=== PATIENT | female | born 1945 | race Caucasian/White ===

== ENCOUNTER 2020-09-18 14:44 | Inpatient (IN) | payer MEDICARE, BC ==
--- NOTE | 2020-09-18 15:24 | ED ---
General Adult HPI - General Chief complaint: Chest Pain Stated complaint: SOB,Chest Pain Time Seen by Provider: 09/18/20 15:06 Source: patient Mode of arrival: ambulatory Limitations: no limitations - History of Present Illness Initial comments: Dictation was produced using [employer] dictation software. please excuse any grammatical, word or spelling errors. Chief Complaint: 75-year-old female past medical history of pulmonary embolus, pneumonia presents to the emergency department for chest pain and shortness of breath History of Present Illness: Is a 75-year-old female. She presents to the emergency department today for 2 days of chest pain and shortness of breath. Patient states she has sharp chest pain to the left chest that's worse with deep inspiration. Patient has history of pneumonia blood clot. Patient states she was diagnosed with PE 2 years ago. She completed a course of anticoagulation therapy. Patient has no history of coronary artery disease. She denies that her symptoms are pressure-like with radiation to the extremities or jaw. No associated diaphoresis. Patient has any lower extremity symptoms. No calf tenderness or lower extremity swelling. Patient's never had coronary artery catheterization or cardiac stress test. He has a remote history of smoking. The ROS documented in this emergency department record has been reviewed and confirmed by me. Those systems with pertinent positive or negative responses have been documented in the HPI. All other systems are other negative and/or no ncontributory. PHYSICAL EXAM: General Impression: Alert and oriented x3, mild distress secondary to pain HEENT: Normocephalic atraumatic, extra-ocular movements intact, pupils equal and reactive to light bilaterally, mucous membranes moist. Cardiovascular: Heart regular rate and rhythm Chest: Able to complete full sentences, no retractions, no tachypnea, lungs clear to auscultation bilaterally Abdomen: abdomen soft, non-tender, non-distended, no organomegaly Musculoskeletal: Pulses present and equal in all extremities, no peripheral edema, symmetrical girth of the lower calf area bilaterally Motor: no focal deficits noted Neurological: CN II-XII grossly intact, no focal motor or sensory deficits noted Skin: Intact with no visualized rashes Psych: Normal affect and mood ED course: 75-year-old female presents to the emergency department for chest pain and shortness of breath. Vital signs upon arrival shows heart rate of 118, 93% on room air, rest of vital signs within acceptable limits. Patient has history of pulmonary embolus. She presents with pleuritic chest pain.. There is clinical concern for bony embolus causing her chest pain. Posterior EKG was performed showing no ST elevations. Patient's EKG could represent ischemic changes versus right heart strain. EKG interpretation: Ventricular rate 14, sinus tachycardia, MN interval 166, QRS 86, QTC 438. No MN prolongation, no QTC prolongation, T-wave inversions in the anterior precordial leads.. No old EKG for comparison Overall, this EKG is nonspecific Laboratory evaluation obtained. CBC within acceptable limits. Coag panel is negative. D-dimer 0.61. Metabolic panel is within acceptable limits. Troponin negative. For panel are up ECR is negative for influenza, RSV and coronavirus. Given patient's tachycardic CT angios the chest was obtained showing no acute PE however there are findings of small left pleural effusion and some mild CHF. X- ray suggests CHF. Patient reevaluated at bedside at 5:40 PM she is found be stable medical condition. She is not showing signs of respiratory distress. She still continues to have pleuritic left-sided chest pain. Patient given analgesics. Continues to be tachycardic. Patient benefit from observation admission for serial troponins, cardiology consultation and further cardiac monitoring. - Related Data Home Medications Medication Instructions Recorded Confirmed Alendronate Sodium [Fosamax] 70 mg PO TU 09/18/20 09/18/20 Ascorbic Acid [Vitamin C] 500 mg PO DAILY 09/18/20 09/18/20 Aspirin EC [Ecotrin Low Dose] 81 mg PO DAILY 09/18/20 09/18/20 Atorvastatin [Lipitor] 40 mg PO DAILY 09/18/20 09/18/20 Biotin 10,000 mcg PO DAILY 09/18/20 09/18/20 Cevimeline [Evoxac] 30 mg PO BID 09/18/20 09/18/20 Cholecalciferol [Vitamin D3 (25 100 mcg PO DAILY 09/18/20 09/18/20 Mcg = 1000 Iu)] Diclofenac Sodium Gel [Voltaren 2 gm TOPICAL QID PRN 09/18/20 09/18/20 Gel] Docusate [Colace] 100 mg PO BID 09/18/20 09/18/20 Etanercept [Enbrel Sureclick] 50 mg SQ TU 09/18/20 09/18/20 Finasteride [Proscar] 5 mg PO DAILY 09/18/20 09/18/20 Multivitamins, Thera [Multivitamin 1 tab PO DAILY 09/18/20 09/18/20 (formulary)] [place]-3 Fatty Acids/Fish Oil [Fish 1 cap PO BID 09/18/20 09/18/20 Oil 1,000 mg Softgel] Pantoprazole [Protonix] 40 mg PO DAILY 09/18/20 09/18/20 Pregabalin [Lyrica] 75 mg PO BID 09/18/20 09/18/20 Salsalate [Disalcid] 750 mg PO BID 09/18/20 09/18/20 Zinc Gluconate [Zinc] 50 mg PO DAILY 09/18/20 09/18/20 amLODIPine [Norvasc] 5 mg PO DAILY 09/18/20 09/18/20 Allergies Allergy/AdvReac Type Severity Reaction Status Date / Time adhesive Allergy Rash/Hives Verified 09/18/20 16:05 azathioprine [From Imuran] Allergy Diarrhea Verified 09/18/20 16:05 hydroxychloroquine Allergy Diarrhea Verified 09/18/20 16:05 [From Plaquenil] meclofenoxate Allergy Diarrhea Verified 09/18/20 16:05 methotrexate Allergy Rash/Hives Verified 09/18/20 16:05 rofecoxib Allergy Rapid Verified 09/18/20 16:05 Heart Rate Tetracyclines Allergy Rash/Hives Verified 09/18/20 16:05 Review of Systems ROS Statement: Those systems with pertinent positive or pertinent negative responses have been documented in the HPI. ROS Other: All systems not noted in ROS Statement are negative. Past Medical History Past Medical History: Pneumonia, Rheumatoid Arthritis (RA) Additional Past Medical History / Comment(s): RA History of Any Multi-Drug Resistant Organisms: None Reported Past Surgical History: Breast Surgery, Orthopedic Surgery Past Psychological History: No Psychological Hx Reported Smoking Status: Former smoker Past Alcohol Use History: Daily Past Drug Use History: None Reported General Exam Limitations: no limitations Course Vital Signs 09/18/20 09/18/20 14:45 17:00 Temperature 98.6 F Pulse Rate 118 H 103 H Respiratory 18 20 Rate Blood Pressure 139/98 172/95 O2 Sat by Pulse 93 L 96 Oximetry Medical Decision Making - Lab Data Result diagrams: 09/18/20 15:27 09/18/20 15:27 Lab Results 09/18/20 09/18/20 09/18/20 Range/Units 15:27 15:27 15:27 WBC 7.4 (3.8-10.6) k/uL RBC 5.01 (3.80-5.40) m/uL Hgb 16.2 H (11.4-16.0) gm/dL Hct 47.1 H (34.0-46.0) % MCV 93.9 (80.0-100.0) fL MCH 32.2 (25.0-35.0) pg MCHC 34.3 (31.0-37.0) g/dL RDW 14.3 (11.5-15.5) % Plt Count 132 L (150-450) k/uL MPV 9.5 Neutrophils % (Manual) 77 % Lymphocytes % (Manual) 14 % Monocytes % (Manual) 6 % Eosinophils % (Manual) 3 % Neutrophils # (Manual) 5.70 (1.3-7.7) k/uL Lymphocytes # (Manual) 1.04 (1.0-4.8) k/uL Monocytes # (Manual) 0.44 (0-1.0) k/uL Eosinophils # (Manual) 0.22 (0-0.7) k/uL Nucleated RBCs 0 (0-0) /100 WBC Manual Slide Review Performed Poikilocytosis (manual Present PT 10.4 (9.0-12.0) sec INR 1.0 (<1.2) APTT 22.8 (22.0-30.0) sec D-Dimer 0.61 H (<0.60) mg/L FEU Sodium (137-145) mmol/L Potassium (3.5-5.1) mmol/L Chloride (98-107) mmol/L Carbon Dioxide (22-30) mmol/L Anion Gap mmol/L BUN (7-17) mg/dL Creatinine (0.52-1.04) mg/dL Est GFR (CKD-EPI)AfAm (>60 ml/min/1.73 sqM) Est GFR (CKD-EPI)NonAf (>60 ml/min/1.73 sqM) Glucose (74-99) mg/dL Calcium (8.4-10.2) mg/dL Magnesium (1.6-2.3) mg/dL Total Bilirubin (0.2-1.3) mg/dL AST (14-36) U/L ALT (4-34) U/L Alkaline Phosphatase (38-126) U/L Troponin I (0.000-0.034) ng/mL Total Protein (6.3-8.2) g/dL Albumin (3.5-5.0) g/dL Influenza Type A (PCR) Not Detected (Not Detectd) Influenza Type B (PCR) Not Detected (Not Detectd) RSV (PCR) Not Detected (Not Detectd) SARS-CoV-2 (PCR) Not Detected (Not Detectd) 09/18/20 09/18/20 Range/Units 15:27 15:27 WBC (3.8-10.6) k/uL RBC (3.80-5.40) m/uL Hgb (11.4-16.0) gm/dL Hct (34.0-46.0) % MCV (80.0-100.0) fL MCH (25.0-35.0) pg MCHC (31.0-37.0) g/dL RDW (11.5-15.5) % Plt Count (150-450) k/uL MPV Neutrophils % (Manual) % Lymphocytes % (Manual) % Monocytes % (Manual) % Eosinophils % (Manual) % Neutrophils # (Manual) (1.3-7.7) k/uL Lymphocytes # (Manual) (1.0-4.8) k/uL Monocytes # (Manual) (0-1.0) k/uL Eosinophils # (Manual) (0-0.7) k/uL Nucleated RBCs (0-0) /100 WBC Manual Slide Review Poikilocytosis (manual PT (9.0-12.0) sec INR (<1.2) APTT (22.0-30.0) sec D-Dimer (<0.60) mg/L FEU Sodium 137 (137-145) mmol/L Potassium 4.8 (3.5-5.1) mmol/L Chloride 107 (98-107) mmol/L Carbon Dioxide 21 L (22-30) mmol/L Anion Gap 9 mmol/L BUN 13 (7-17) mg/dL Creatinine 0.67 (0.52-1.04) mg/dL Est GFR (CKD-EPI)AfAm >90 (>60 ml/min/1.73 sqM) Est GFR (CKD-EPI)NonAf 87 (>60 ml/min/1.73 sqM) Glucose 121 H (74-99) mg/dL Calcium 9.2 (8.4-10.2) mg/dL Magnesium 2.0 (1.6-2.3) mg/dL Total Bilirubin 1.6 H (0.2-1.3) mg/dL AST 39 H (14-36) U/L ALT 23 (4-34) U/L Alkaline Phosphatase 84 (38-126) U/L Troponin I <0.012 (0.000-0.034) ng/mL Total Protein 7.3 (6.3-8.2) g/dL Albumin 4.4 (3.5-5.0) g/dL Influenza Type A (PCR) (Not Detectd) Influenza Type B (PCR) (Not Detectd) RSV (PCR) (Not Detectd) SARS-CoV-2 (PCR) (Not Detectd) Disposition Clinical Impression: Chest pain Disposition: ADMITTED IP TO THIS HOSP Condition: Fair Referrals: None,Stated [Primary Care Provider] - 1-2 days
[2020-09-18 15:44] LABS: ALT 23 U/L (4-34); AST 39 U/L (14-36); African American GFR (CKD) >90 (>60 ml/min/1.73 sqM); Albumin 4.4 g/dL (3.5-5.0); Alkaline Phosphatase 84 U/L (38-126); Anion Gap 9 mmol/L; Blood Urea Nitrogen 13 mg/dL (7-17); Calcium 9.2 mg/dL (8.4-10.2); Carbon Dioxide 21 mmol/L (22-30); Chloride 107 mmol/L (98-107); Glucose 121 mg/dL (74-99); Non-African American GFR(CKD) 87 (>60 ml/min/1.73 sqM); Potassium 4.8 mmol/L (3.5-5.1); Sodium 137 mmol/L (137-145); Total Bilirubin 1.6 mg/dL (0.2-1.3); Total Protein 7.3 g/dL (6.3-8.2)
[2020-09-18] MEDS ORDERED: SODIUM CHLORIDE 0.9% 1,000 ML IV STA (16:01)
[2020-09-18 16:06] LABS: Prothrombin Time 10.4 sec (9.0-12.0)
[2020-09-18 16:07] LABS: Partial Thromboplastin Time 22.8 sec (22.0-30.0)
[2020-09-18 16:15] LABS: HCT 47.1 % (34.0-46.0); HGB 16.2 gm/dL (11.4-16.0); MCH 32.2 pg (25.0-35.0); MCHC 34.3 g/dL (31.0-37.0); MCV 93.9 fL (80.0-100.0); Mean Platelet Volume 9.5; Platelet Count 132 k/uL (150-450); RBC 5.01 m/uL (3.80-5.40); RDW 14.3 % (11.5-15.5); WBC 7.4 k/uL (3.8-10.6)
[2020-09-18 16:44] LABS: Eosinophils # (M) 0.22 k/uL (0-0.7); Lymphocytes # (M) 1.04 k/uL (1.0-4.8); Monocytes # (M) 0.44 k/uL (0-1.0); Neutrophils % (M) 77 %; Nucleated Red Blood Cells 0 /100 WBC (0-0); Total Cells Counted 100
[2020-09-18 16:45] LABS: Poikilocytosis (M) Present
--- NOTE | 2020-09-18 17:20 | CT ---
EXAMINATION TYPE: CT angio chest DATE OF EXAM: 09/18/2020 5:07 PM COMPARISON: None available. HISTORY: .61 d dimer. Shortness of breath. CT DLP: 407.5 mGycm Automated exposure control for dose reduction was used. CONTRAST: CTA scan of the thorax is performed with IV Contrast, patient injected with 100 mL of Isovue 370, pul monary embolism protocol. MIP images are created and reviewed. FINDINGS: LUNGS: There is small left pneumothorax is seen adjacent atelectasis. There is a 1.1 cm left lower lo be calcified granuloma. There is mild interseptal thickening suggestive of interstitial edema. Ther e is no pneumothorax seen. The tracheobronchial tree is patent. MEDIASTINUM: There is satisfactory enhancement of the pulmonary artery and its branches, there is no CT evidence for pulmonary embolism. There are scattered few borderline to mildly enlarged mediastina l lymph nodes, may be reactive. Cardiomegaly. No pericardial effusion is seen. OTHER: No additional significant abnormality is seen. IMPRESSION: NO ACUTE PE. SMALL LEFT PLEURAL EFFUSION WITH ADJACENT ATELECTASIS. SUGGESTION OF INTERSTITIAL EDEMA.
--- NOTE | 2020-09-18 17:25 | XR ---
EXAMINATION TYPE: XR chest 2V DATE OF EXAM: 09/18/2020 COMPARISON: Concurrent CT. HISTORY: Shortness of breath. TECHNIQUE: Frontal and lateral views of the chest are obtained. FINDINGS: There is mild interstitial edema. There is trace left pleural effusion. No pneumothorax se en. The cardiac silhouette size is enlarged. The osseous structures are intact. IMPRESSION: Mild CHF.
[2020-09-18] MEDS ORDERED: ASPIRIN 81 MG PO STA (17:37)
[2020-09-18] MEDS ORDERED: NITROGLYCERIN SL TABS 0.4 MG TAB SUBLINGUAL PRN (17:37)
[2020-09-18] MEDS ORDERED: MORPHINE SULFATE 4 MG/ML SYRINGE IV STA (17:39)
[2020-09-18] MEDS ORDERED: HYDROcodone/APAP 10-325MG 1 EACH TAB PO ONE (21:59)
--- NOTE | 2020-09-18 23:49 | P.HPIM ---
History of Present Illness H&P Date: 09/18/20 The patient is a 75-year-old female with a PMH of pulmonary embolism diagnosed 2 years ago with subsequent 3 months of antibiotic patient, and history of multiple pneumonias who presented to the emergency room with complaints of left- sided chest pain. The patient reports that her pain started suddenly 2 days ago, is left sided, sharp, strongly pleuritic in nature, occurring only with deep inspiration, no nonradiating, constant, and without associated symptoms. She denied associated nausea, diaphoresis, vomiting, dizziness, shortness of breath. Patient denied experiencing any trauma to the area and notes that the area is tender to palpation. Denied pain radiating to the back or to the jaw. Denied having any history of coronary artery disease or MIs in the past. Also denied lower extremity swelling or pain. Notes that her prior pulmonary embolism was unprovoked. She reports a chronic nonproductive cough for which she is following with a professor sculpture. Denied fever, chills, headaches, weakness, numbness, tingling. The patient underwent an extensive evaluation in the emergency room. Upon presentation, the patient's vital signs revealed tachycardia with pulse 118, and hypoxia with SpO2 93% on room air, and BP 139/98. Chest CTA was negative for PE but did reveal a small left-sided pleural effusion with adjacent atelectasis. Chest x-ray was consistent with mild CHF. Laboratory evaluation revealed a hemoglobin of 16.2, platelets 132, d-dimer 0.61, proBNP 174, and troponin less than 0.012. Influenza, RSV, and coronavirus PCR were all negative. EKG revealed sinus tachycardia at 112 bpm along with Q waves and T-wave flattening in leads 3 and aVF. Review of systems: Pertinent positives and negatives as discussed in HPI, a complete review of systems was performed and all other systems are negative. Physical examination: General: non toxic, no distress, appears at stated age, overweight Derm: no unusual rashes/lesions no unusual ecchymoses, warm, dry Head: atraumatic, normocephalic, symmetric Eyes: EOMI, no lid lag, anicteric sclera, pupils equal round reactive to light ENT: Nose and ears atraumatic, no thrush, no pharyngeal erythema Neck: No thyromegaly, no cervical lymphadenopathy, trachea midline, supple Mouth: no lip lesion, mucus membranes moist Cardiovascular: S1S2 reg, no murmur, positive posterior tibial pulse bilateral, no edema, capillary refill less than 2 seconds, left lateral chest wall tenderness to palpation, Lungs: CTA bilateral, no rhonchi, no rales , no accessory muscle use Abdominal: soft, nontender to palpation, no guarding, no appreciable organomegaly, normal bowel sounds Ext: no gross muscle atrophy, muscle strength 5 out of 5 in all 4 extremities grossly, no contractures, Neuro: CN II-XI grossly intact, light touch intact all 4 extremities, finger to nose within normal limits, Psych: Alert, oriented, appropriate affect Assessment/plan Atypical chest pain, r/o ACS -Cardiology consulted -Cardiac monitoring -Trend troponin -Continue aspirin Thrombocytopenia -No baseline available for comparison -Monitor for now Chronic conditions: Hypertension, hyperlipidemia -Continue with home meds DVT prophylaxis -Heparin subcu The patient is admitted with an anticipated less than 2 midnight stay for evaluation of chest pain CODE STATUS: Full Code Discussed with: Patient Anticipated discharge date: in am Anticipated discharge place: Home Past Medical History Past Medical History: Pneumonia, Rheumatoid Arthritis (RA) Additional Past Medical History / Comment(s): RA History of Any Multi-Drug Resistant Organisms: None Reported Past Surgical History: Breast Surgery, Orthopedic Surgery Past Psychological History: No Psychological Hx Reported Smoking Status: Former smoker Past Alcohol Use History: Daily Past Drug Use History: None Reported - Past Family History Father History Unknown: Yes Family Medical History: Diabetes Mellitus Mother History Unknown: Yes Family Medical History: Diabetes Mellitus Medications and Allergies Home Medications Medication Instructions Recorded Confirmed Type Alendronate Sodium [Fosamax] 70 mg PO TU 09/18/20 09/18/20 History Ascorbic Acid [Vitamin C] 500 mg PO DAILY 09/18/20 09/18/20 History Aspirin EC [Ecotrin Low Dose] 81 mg PO DAILY 09/18/20 09/18/20 History Atorvastatin [Lipitor] 40 mg PO DAILY 09/18/20 09/18/20 History Biotin 10,000 mcg PO DAILY 09/18/20 09/18/20 History Cevimeline [Evoxac] 30 mg PO BID 09/18/20 09/18/20 History Cholecalciferol [Vitamin D3 (25 100 mcg PO DAILY 09/18/20 09/18/20 History Mcg = 1000 Iu)] Diclofenac Sodium Gel [Voltaren 2 gm TOPICAL QID PRN 09/18/20 09/18/20 History Gel] Docusate [Colace] 100 mg PO BID 09/18/20 09/18/20 History Etanercept [Enbrel Sureclick] 50 mg SQ TU 09/18/20 09/18/20 History Finasteride [Proscar] 5 mg PO DAILY 09/18/20 09/18/20 History Multivitamins, Thera [Multivitamin 1 tab PO DAILY 09/18/20 09/18/20 History (formulary)] [place]-3 Fatty Acids/Fish Oil [Fish 1 cap PO BID 09/18/20 09/18/20 History Oil 1,000 mg Softgel] Pantoprazole [Protonix] 40 mg PO DAILY 09/18/20 09/18/20 History Pregabalin [Lyrica] 75 mg PO BID 09/18/20 09/18/20 History Salsalate [Disalcid] 750 mg PO BID 09/18/20 09/18/20 History Zinc Gluconate [Zinc] 50 mg PO DAILY 09/18/20 09/18/20 History amLODIPine [Norvasc] 5 mg PO DAILY 09/18/20 09/18/20 History Allergies Allergy/AdvReac Type Severity Reaction Status Date / Time adhesive Allergy Rash/Hives Verified 09/18/20 16:05 azathioprine [From Imuran] Allergy Diarrhea Verified 09/18/20 16:05 hydroxychloroquine Allergy Diarrhea Verified 09/18/20 16:05 [From Plaquenil] meclofenoxate Allergy Diarrhea Verified 09/18/20 16:05 methotrexate Allergy Rash/Hives Verified 09/18/20 16:05 rofecoxib Allergy Rapid Verified 09/18/20 16:05 Heart Rate Tetracyclines Allergy Rash/Hives Verified 09/18/20 16:05 Physical Exam Vitals: Vital Signs Temp Pulse Pulse Resp BP BP Pulse Ox 09/18/20 20:47 98.4 F 84 18 160/88 93 L 09/18/20 19:19 98 18 134/74 92 L 09/18/20 18:00 102 H 18 92 L 09/18/20 17:00 103 H 20 172/95 96 09/18/20 14:45 98.6 F 118 H 18 139/98 93 L Intake and Output 08/01/2709/18/20 09/18/20 06:59 14:59 22:59 Other: Weight 79.379 kg Results CBC & Chem 7: 09/18/20 15:27 09/18/20 15:27 Labs: Abnormal Lab Results - Last 24 Hours (Table) 09/18/20 09/18/20 09/18/20 Range/Units 15:27 15:27 15:27 Hgb 16.2 H (11.4-16.0) gm/dL Hct 47.1 H (34.0-46.0) % Plt Count 132 L (150-450) k/uL D-Dimer 0.61 H (<0.60) mg/L FEU Carbon Dioxide 21 L (22-30) mmol/L Glucose 121 H (74-99) mg/dL Total Bilirubin 1.6 H (0.2-1.3) mg/dL AST 39 H (14-36) U/L
[2020-09-19 05:24] LABS: ALT 17 U/L (4-34); AST 22 U/L (14-36); African American GFR (CKD) >90 (>60 ml/min/1.73 sqM); Albumin 3.4 g/dL (3.5-5.0); Albumin/Globulin Ratio 1.4; Alkaline Phosphatase 67 U/L (38-126); Anion Gap 7 mmol/L; Blood Urea Nitrogen 10 mg/dL (7-17); Calcium 8.4 mg/dL (8.4-10.2); Carbon Dioxide 23 mmol/L (22-30); Chloride 109 mmol/L (98-107); Globulin 2.5 g/dL; Glucose 122 mg/dL (74-99); Non-African American GFR(CKD) >90 (>60 ml/min/1.73 sqM); Potassium 4.3 mmol/L (3.5-5.1); Sodium 139 mmol/L (137-145); Total Bilirubin 1.2 mg/dL (0.2-1.3); Total Protein 5.9 g/dL (6.3-8.2)
[2020-09-19] MEDS: HYDROcodone/APAP 10-325MG 1 EACH TAB PO PRN ×2 (05:47→14:34)
[2020-09-19] MEDS: ATORVASTATIN 40 MG TAB PO SCH (07:44)
[2020-09-19] MEDS: PANTOPRAZOLE 40 MG TABLET PO SCH (07:44)
[2020-09-19] MEDS: HEPARIN SODIUM,PORCINE/PF 5,000 UNIT/0.5 ML SYRINGE SQ SCH ×2 (07:44→16:50)
[2020-09-19] MEDS: ASPIRIN 325 MG TAB PO SCH (07:44)
[2020-09-19] MEDS: PREGABALIN 75 MG CAP PO SCH ×2 (07:44→21:17)
[2020-09-19] MEDS: amLODIPine 5 MG TAB PO SCH (07:45)
--- NOTE | 2020-09-19 08:04 | P.CRDCN ---
History of Present Illness History of present illness: HISTORY OF PRESENTING ILLNESS This is a pleasant 75-year-old with past medical history significant for rheumatoid arthritis, remote pulmonary embolism, hypertension. She is originally from [place] has been up in this area on her boat for the past 2 weeks. She states she had been going about her today and had been feeling fine and then started developing a left chest sharp pain which radiated up in her shoulder. She denies any associated nausea, diaphoresis, shortness breath. She denies any fevers, chills, cough. She does admit the pain is somewhat improved with lifting above her head and is somewhat reproducible with palpation. She normally stays fairly active walking most place that she goes however nothing more exertion secondary to her rheumatoid arthritis. She does get some chronic dyspnea on exertion however this has been fairly stable. DIAGNOSTICS EKG reveals sinus tachycardia at 114 bpm, left axis deviation, Q waves inferiorly, T waves V2 through V3. Chest CTA: No acute PE, small left pleural effusion with atelectasis Laboratory reviewed, white blood cell 7.4, hemoglobin 16.2, platelets 132, d- dimer 0.61, carbon dioxide 21, BUN 13, creatinine 0.67, total bilirubin 1.6, AST 39, troponins less than 0.0123, proBNP 174. REVIEW OF SYSTEMS At the time of my exam: CONSTITUTIONAL: Denies fever or chills. CARDIOVASCULAR: +chest pain, chornic shortness of breath, no orthopnea, PND or palpitations. RESPIRATORY: Denies cough. GASTROINTESTINAL: Denies abdominal pain, diarrhea, constipation, nausea or vomiting. MUSCULOSKELETAL: Denies myalgias. NEUROLOGIC: Denies numbness, tingling or weakness. ENDOCRINE: Denies fatigue, weight change, polydipsia or polyurina. GENITOURINARY: Denies burning, hematuria or urgency with micturation. HEMATOLOGIC: Denies history of anemia or bleeding. PHYSICAL EXAMINATION Vital signs reviewed. CONSTITUTIONAL: No apparent distress. HEENT: Head is normocephalic. Pupils are equal, round. Sclerae anicteric. Mucous membranes of the mouth are moist. No JVD. No carotid bruit. CHEST EXAMINATION: Lungs are clear to auscultation. +reproducible chest pain HEART EXAMINATION: Regular rate and rhythm. S1, S2 heard. No murmurs, gallops or rub. ABDOMEN: Soft, nontender. Positive bowel sounds. EXTREMITIES: 2+ peripheral pulses, no lower extremity edema and no calf tenderness. NEUROLOGIC EXAMINATION: Patient is awake, alert and oriented x3. ASSESSMENT 1. Atypical reproducible chest pain, troponin normal times. 2. Chronic dyspnea on exertion, may be related to deconditioning 3. Rheumatoid arthritis 4. History of pulmonary embolism 5. Abnormal EKG with Q waves inferiorly 6. Hyperlipidemia PLAN Patient's chest pain is atypical and reproducible. Suspect mainly musculoskeletal and it has somewhat improved with lifting her left arm above her head. Patient does however have additional dyspnea on exertion and we will check echocardiogram as well as stress echo. If both are unrevealing, patient may be discharged home with pain medications. Past Medical History Past Medical History: Pneumonia, Rheumatoid Arthritis (RA) Additional Past Medical History / Comment(s): RA History of Any Multi-Drug Resistant Organisms: None Reported Past Surgical History: Breast Surgery, Orthopedic Surgery Past Anesthesia/Blood Transfusion Reactions: No Reported Reaction Past Psychological History: No Psychological Hx Reported Smoking Status: Former smoker Past Alcohol Use History: Daily Past Drug Use History: None Reported - Past Family History Father History Unknown: Yes Family Medical History: Diabetes Mellitus Mother History Unknown: Yes Family Medical History: Diabetes Mellitus Medications and Allergies Home Medications Medication Instructions Recorded Confirmed Type Alendronate Sodium [Fosamax] 70 mg PO 09/18/20 09/18/20 History Ascorbic Acid [Vitamin C] 500 mg PO DAILY 09/18/20 09/18/20 History Aspirin EC [Ecotrin Low Dose] 81 mg PO DAILY 09/18/20 09/18/20 History Atorvastatin [Lipitor] 40 mg PO DAILY 09/18/20 09/18/20 History Biotin 10,000 mcg PO DAILY 09/18/20 09/18/20 History Cevimeline [Evoxac] 30 mg PO BID 09/18/20 09/18/20 History Cholecalciferol [Vitamin D3 (25 100 mcg PO DAILY 09/18/20 09/18/20 History Mcg = 1000 Iu)] Diclofenac Sodium Gel [Voltaren 2 gm TOPICAL QID PRN 09/18/20 09/18/20 History Gel] Docusate [Colace] 100 mg PO BID 09/18/20 09/18/20 History Etanercept [Enbrel Sureclick] 50 mg SQ 09/18/20 09/18/20 History Finasteride [Proscar] 5 mg PO DAILY 09/18/20 09/18/20 History Multivitamins, Thera [Multivitamin 1 tab PO DAILY 09/18/20 09/18/20 History (formulary)] [place]-3 Fatty Acids/Fish Oil [Fish 1 cap PO BID 09/18/20 09/18/20 History Oil 1,000 mg Softgel] Pantoprazole [Protonix] 40 mg PO DAILY 09/18/20 09/18/20 History Pregabalin [Lyrica] 75 mg PO BID 09/18/20 09/18/20 History Salsalate [Disalcid] 750 mg PO BID 09/18/20 09/18/20 History Zinc Gluconate [Zinc] 50 mg PO DAILY 09/18/20 09/18/20 History amLODIPine [Norvasc] 5 mg PO DAILY 09/18/20 09/18/20 History Allergies Allergy/AdvReac Type Severity Reaction Status Date / Time adhesive Allergy Rash/Hives Verified 09/18/20 16:05 azathioprine [From Imuran] Allergy Diarrhea Verified 09/18/20 16:05 hydroxychloroquine Allergy Diarrhea Verified 09/18/20 16:05 [From Plaquenil] meclofenoxate Allergy Diarrhea Verified 09/18/20 16:05 methotrexate Allergy Rash/Hives Verified 09/18/20 16:05 rofecoxib Allergy Rapid Verified 09/18/20 16:05 Heart Rate Tetracyclines Allergy Rash/Hives Verified 09/18/20 16:05 Physical Exam Vitals: Vital Signs Temp Pulse Pulse Resp BP BP Pulse Ox 09/19/20 07:00 98.4 F 99 18 127/69 92 L 09/19/20 02:00 98.3 F 97 18 134/81 92 L 09/18/20 20:47 98.4 F 84 18 160/88 93 L 09/18/20 19:19 98 18 134/74 92 L 09/18/20 18:00 102 H 18 92 L 09/18/20 17:00 103 H 20 172/95 96 09/18/20 14:45 98.6 F 118 H 18 139/98 93 L Intake and Output 09/18/20 09/19/20 09/19/20 22:59 06:59 14:59 Intake Total 120 Balance 120 Intake: Oral 120 Other: Voiding Method Toilet Toilet # Voids 1 1 Weight 80 kg Results 09/18/20 15:27 09/19/20 04:48 Cardiac Enzymes 09/18/20 09/18/20 09/18/20 Range/Units 15:27 15:27 18:21 AST 39 H (14-36) U/L Troponin I <0.012 <0.012 (0.000-0.034) ng/mL 09/18/20 09/19/20 Range/Units 20:46 04:48 AST 22 (14-36) U/L Troponin I <0.012 (0.000-0.034) ng/mL Coagulation 09/18/20 Range/Units 15:27 PT 10.4 (9.0-12.0) sec APTT 22.8 (22.0-30.0) sec CBC 09/18/20 Range/Units 15:27 WBC 7.4 (3.8-10.6) k/uL RBC 5.01 (3.80-5.40) m/uL Hgb 16.2 H (11.4-16.0) gm/dL Hct 47.1 H (34.0-46.0) % Plt Count 132 L (150-450) k/uL Comprehensive Metabolic Panel 09/18/20 09/19/20 Range/Units 15:27 04:48 Sodium 137 139 (137-145) mmol/L Potassium 4.8 4.3 (3.5-5.1) mmol/L Chloride 107 109 H (98-107) mmol/L Carbon Dioxide 21 L 23 (22-30) mmol/L BUN 13 10 (7-17) mg/dL Creatinine 0.67 0.58 (0.52-1.04) mg/dL Glucose 121 H 122 H (74-99) mg/dL Calcium 9.2 8.4 (8.4-10.2) mg/dL AST 39 H 22 (14-36) U/L ALT 23 17 (4-34) U/L Alkaline Phosphatase 84 67 (38-126) U/L Total Protein 7.3 5.9 L (6.3-8.2) g/dL Albumin 4.4 3.4 L (3.5-5.0) g/dL Current Medications Generic Name Dose Route Start Last Admin Trade Name Freq PRN Reason Stop Dose Admin Hydrocodone Bitart/Acetaminophen 1 each 09/18/20 21:59 09/19/20 05:47 Hydrocodone/Apap 10-325mg 1 Each Tab PO 1 each Q6H PRN Administration Pain Amlodipine Besylate 5 mg 09/19/20 09:00 09/19/20 07:45 Amlodipine 5 Mg Tab PO 5 mg DAILY MIKO Administration Aspirin 325 mg 09/19/20 09:00 09/19/20 07:44 Aspirin 325 Mg Tab PO 325 mg DAILY MIKO Administration Atorvastatin Calcium 40 mg 09/19/20 09:00 09/19/20 07:44 Atorvastatin 40 Mg Tab PO 40 mg DAILY MIKO Administration Heparin Sodium (Porcine) 5,000 unit 09/19/20 08:00 09/19/20 07:44 Heparin Sodium,Porcine/Pf 5,000 Unit/0.5 Ml Syringe SQ 5,000 unit Q8HR MIKO Administration Nitroglycerin 0.4 mg 09/18/20 17:37 Nitroglycerin Sl Tabs 0.4 Mg Tab SUBLINGUAL Q5M PRN Chest Pain Pantoprazole Sodium 40 mg 09/19/20 07:30 09/19/20 07:44 Pantoprazole 40 Mg Tablet PO 40 mg [id number] MIKO Administration Pregabalin 75 mg 09/19/20 09:00 09/19/20 07:44 Pregabalin 75 Mg Cap PO 75 mg BID MIKO Administration Intake and Output 09/18/20 09/19/20 09/19/20 22:59 06:59 14:59 Intake Total 120 Balance 120 Intake: Oral 120 Other: Voiding Method Toilet Toilet # Voids 1 1 Weight 80 kg 09/18/20 15:27 09/19/20 04:48
[2020-09-19] MEDS ORDERED: NON FORMULARY DRUG (Aspirin Ec 81 MG Tablet.Dr) PO SCH (09:00)
[2020-09-19 09:51] LABS: HCT 45.7 % (37.2-46.3); HGB 14.4 g/dL (12.0-15.0); MCH 30.2 pg (27.0-32.0); MCHC 31.5 g/dL (32.0-37.0); MCV 95.8 fL (80.0-97.0); Mean Platelet Volume 12.1 fL (9.5-12.2); Platelet Count 121 X 10*3/uL (140-440); RBC 4.77 X 10*6/uL (4.10-5.20); RDW 14.7 % (11.5-14.5); WBC 6.03 X 10*3/uL (4.50-10.00)
[2020-09-19 10:22] LABS: Chol/HDL Ratio 2.55; Cholesterol 130 mg/dL (0-200); LDL Cholesterol,Calculated 58.2 mg/dL (0.0-131.0)
--- NOTE | 2020-09-19 13:28 | ECHOF ---
Referral Reason:re: CP MEASUREMENTS -------- HEIGHT: 170.2 cm WEIGHT: 79.4 kg BP: IVSd: 1.1 cm (0.6 - 1.1) LVIDd: 4.0 cm (3.9 - 5.3) LVPWd: 1.0 cm (0.6 - 1.1) IVSs: 1.5 cm LVIDs: 2.6 cm LVPWs: 1.3 cm LA Diam: 2.6 cm (2.7 - 3.8) Ao Diam: 2.5 cm (2.0 - 3.7) AV Cusp: 2.0 cm (1.5 - 2.6) LA Diam: 3.1 cm (2.7 - 3.8) MV E Timmy: 0.76 m/s MV DecT: 110 ms MV A Timmy: 1.11 m/s MV E/A Ratio: 0.69 RAP: 5.00 mmHg RVSP: 16.71 mmHg FINDINGS -------- Sinus rhythm. This was a technically difficult study with suboptimal views. The left ventricular size is normal. Left ventricular wall thickness is normal. Overall left vent ricular systolic function is normal with, an EF between 55 - 60 %. The RV was not well visualized. The left atrial size is normal. The right atrium was not well visualized. 5.0mg of Lumason was utilized for enhancement of images Interatrial and interventricular septum intact. The aortic valve was not well visualized. There is no evidence of aortic regurgitation. There is no evidence of aortic stenosis. The mitral valve was not well visualized. There is trace mitral regurgitation. Mild tricuspid regurgitation present. There is no evidence of pulmonary hypertension. The right v entricular systolic pressure, as measured by Doppler, is 16.71mmHg. There is no pulmonic regurgitation present. The aortic root size is normal. IVC Not well visulized. There is a small, generalized pericardial effusion present. CONCLUSIONS -------- 1. The left ventricular size is normal. 2. Left ventricular wall thickness is normal. 3. Overall left ventricular systolic function is normal with, an EF between 55 - 60 %. 4. Mild tricuspid regurgitation present. 5. There is a small, generalized pericardial effusion present. [employer]: Natacha Collins [facility]
--- NOTE | 2020-09-19 13:41 | US ---
EXAMINATION TYPE: US liver DATE OF EXAM: 09/19/2020 COMPARISON: NONE CLINICAL HISTORY: cholelithiasis. Pain EXAM MEASUREMENTS: Liver Length: 18 cm Gallbladder Wall: .2 cm CBD: .9 cm Right Kidney: 10.3 x 4.7 x 4.5 cm Pancreas: Obscured by bowel gas Liver: Increased attenuation Gallbladder: No shadowing mobile stones seen Evidence for sonographic Lindquist's sign: No CBD: Dilated mildly Right Kidney: No hydronephrosis or masses seen IMPRESSION: No shadowing mobile gallstones or ultrasound evidence for acute cholecystitis
[2020-09-19] MEDS ORDERED: MAG HYDROX/AL HYDROX/SIMETH 30 ML, HYOSCYAMINE ELIXIR 10 ML, LIDOCAINE VISCOUS 2% 10 ML PO ONE ×3 (15:30)
--- NOTE | 2020-09-19 16:27 | P.STRESS ---
- Stress Test Note Stress Test Results/Findings: Exam Performed: stress echo exercise Exam Date: 09/19/20 Reason for Exam: Chest Pain Height: 5 ft 7 in Weight: 80 kg Protocol: Dilan Stage: 1 Duration of Exercise: 1:52 Resting Heart Rate: 99 Resting Blood Pressure: 143/57 Maximum Achieved Heart Rate: 135 Maximum Achieved Blood Pressure: 143/70 85% PMHR: 124 100% PMHR: 146 METS: 3.2 Technologist Comment: Stress Test Results/Findings: Patient underwent exercise stress echo with a Dilan protocol treadmill stress test. Patient exercised into Stage 1 for a total of 1 minute 52 seconds reaching a total of 3.2 METS. Patient's maximum heart rate was 135 which represented 92 % age-predicted maximum heart rate. Stress EKG portion: At baseline patient's EKG showed normal sinus rhythm, left axis deviation, poor R-wave progression, low voltage, rare PVC. At peak exercise, EKG showed no significant change from baseline. Stress echo portion: 2-D echocardiogram was performed in the parasternal long, personal short, apical 2 and apical four-chamber views at rest, peak exercise and in recovery. At baseline, echocardiogram showed left ventricular ejection fraction 55% without wall motion abnormalities. With peak exercise, echocardiogram shows improvement in left ventricular ejection fraction, increase contractility, decrease in left ventricular dimension without wall motion abnormalities consistent with a normal response to exercise. Conclusions: 1. Normal EKG and echo response to exercise without evidence of inducible ische patricio. 2. Extremely poor exercise capacity.
[2020-09-19] MEDS ORDERED: FUROSEMIDE 10 MG/ML 4 ML VIAL IV STA (16:37)
--- NOTE | 2020-09-19 16:43 | P.PN ---
Subjective Progress Note Date: 09/19/20 Principal diagnosis: chest pain The patient is a 75-year-old female with a PMH of Rheumatoid arthritis on biologic, pulmonary embolism diagnosed 2 years ago, history of multiple pneumonias who presented to the emergency room with complaints of left-sided chest pain. Upon presentation, the patient's vital signs revealed tachycardia with pulse 118, and hypoxia with SpO2 93% on room air, and BP 139/98. Chest CTA was negative for PE but did reveal a small left-sided pleural effusion with adjacent atelectasis. Chest x-ray was consistent with mild CHF. Laboratory evaluation revealed a hemoglobin of 16.2, platelets 132, d-dimer 0.61, proBNP 174, and troponin less than 0.012. Influenza, RSV, and coronavirus PCR were all negative. EKG revealed sinus tachycardia at 112 bpm along with Q waves and T- wave flattening in leads 3 and aVF. She was admitted for further evaluation. Her troponins remained negative. She was seen by cardiology and underwent an echocardiogram which revealed an ejection fraction of 55%. Stress echo is currently pending. She continued to have left-sided pain with movement and palpation. Patient seen and examined at bedside. She reports significant left lower chest upper abdominal pain. It appears to be over the left rib cage when you press. She is having some shortness of breath, no cough and is overall not feeling well. She has had a history of multiple episodes of pneumonia. She also recently started on Fosamax in addition to her other medications. This does not sound consistent with gastritis at this time. General: , no distress, appears at stated age Derm: warm, dry Head: atraumatic, normocephalic, symmetric Eyes: EOMI, no lid lag, anicteric sclera Mouth: no lip lesion, mucus membranes moist Cardiovascular: S1S2 reg, no murmur, positive posterior tibial pulse bilateral, Lungs: CTA bilateral, no rhonchi, no rales , no accessory muscle use, + TTP over the left rib cage Abdominal: soft, nontender to palpation, no guarding, no appreciable organomegaly Ext: no gross muscle atrophy, no edema, no contractures Neuro: CN II-XI grossly intact, no focal neuro deficits Psych: Alert, oriented, appropriate affect Atypical chest pain Suspect pleurisy Left-sided pleural effusion Immunocompromise secondary to Enbrel for rheumatoid arthritis -Start Solu-Medrol, Lasix 1 now -Await stress test results -Monitor patient again overnight -Pain control -Repeat chest x-ray and CBC in the morning. Follow fever profile to ensure no signs of pneumonia. Thrombocytopenia -Minimal -No indication for transfusion at this time Hypertension, controlled -Continue with Norvasc -Follow blood pressures Dyslipidemia -Statin therapy Plan will be for a trial of Lasix and Solu-Medrol. Repeat chest x-ray in a.m. If improvement and stress test is negative patient likely home in the morning. Objective - Vital Signs Vital signs: Vital Signs Temp 98.3 F 09/19/20 14:38 Pulse 106 H 09/19/20 14:38 Resp 18 09/19/20 14:38 BP 124/81 09/19/20 14:38 Pulse Ox 91 L 09/19/20 16:04 Intake & Output 09/18/20 09/19/20 09/19/20 18:59 06:59 18:59 Intake Total 120 180 Balance 120 180 Weight 79.379 kg 80 kg 80 kg Intake: Oral 120 180 Other: Voiding Method Toilet Toilet # Voids 1 2 - Labs CBC & Chem 7: 09/19/20 04:48 09/19/20 04:48 Labs: Abnormal Lab Results - Last 24 Hours (Table) 09/19/20 09/19/20 Range/Units 04:48 04:48 MCHC 31.5 L (32.0-37.0) g/dL RDW 14.7 H (11.5-14.5) % Plt Count 121 L (140-440) X 10*3/uL Chloride 109 H (98-107) mmol/L Glucose 122 H (74-99) mg/dL Total Protein 5.9 L (6.3-8.2) g/dL Albumin 3.4 L (3.5-5.0) g/dL
[2020-09-19] MEDS ORDERED: FUROSEMIDE 10 MG/ML 10 ML VIAL IV SCH (16:45)
[2020-09-19] MEDS: methylPREDNISolone SOD SUCCI 125 MG/2 ML VIAL IV SCH (16:51)
[2020-09-19] MEDS ORDERED: DILTIAZEM 125 MG in SODIUM CHLORIDE 0.9% 100 ML IV SCH (18:45)
[2020-09-19] MEDS ORDERED: DILTIAZEM DRIP BOLUS FROM BAG 1 MG SOLN IV ONE (18:45)
[2020-09-19] MEDS ORDERED: HEPARIN SODIUM 1,000 UN/ML (10ML VL) IV PRN (18:46)
[2020-09-19] MEDS ORDERED: HEPARIN SODIUM 1,000 UN/ML (10ML VL) IV ONE (18:46)
[2020-09-19] MEDS ORDERED: HEPARIN SOD,PORK IN 0.45% NACL 25,000 UNIT in 0.45% NACL 1 250ML.BAG IV SCH (19:00)
--- NOTE | 2020-09-19 19:07 | XR ---
EXAMINATION TYPE: XR chest 1V portable DATE OF EXAM: 09/19/2020 COMPARISON: 09/18/2020. HISTORY: Pleural effusion follow-up. Shortness of breath. TECHNIQUE: Single frontal view of the chest is obtained. FINDINGS: There is persistent small left pleural effusion with adjacent opacity. No pneumothorax see n. The cardiac silhouette size is mildly enlarged. The osseous structures are intact. IMPRESSION: Persistent small left pleural effusion with adjacent atelectasis.
[2020-09-19 19:49] VITALS: RESP 20
[2020-09-19] MEDS: CEVIMELINE 30 MG CAP PO SCH (21:16)
[2020-09-19 21:34] LABS: Basophils % (A) 0 %; Eosinophils % (A) 0 %; HGB 15.4 gm/dL (11.4-16.0); Lymphocytes # (A) 0.6 k/uL (1.0-4.8); Lymphocytes % (A) 7 %; MCH 31.4 pg (25.0-35.0); MCV 97.9 fL (80.0-100.0); Mean Platelet Volume 9.6; Monocytes # (A) 0.3 k/uL (0-1.0); Monocytes % (A) 3 %; Neutrophils # (A) 7.9 k/uL (1.3-7.7); Neutrophils % (A) 89 %; Platelet Count 125 k/uL (150-450); RBC 4.91 m/uL (3.80-5.40); RDW 14.3 % (11.5-15.5)
[2020-09-19 22:11] LABS: INR 1.1 (<1.2); Prothrombin Time 11.1 sec (9.0-12.0)
[2020-09-19 22:12] LABS: Partial Thromboplastin Time 92.6 sec (22.0-30.0)
[2020-09-19 22:14] LABS: ALT 17 U/L (4-34); AST 21 U/L (14-36); African American GFR (CKD) >90 (>60 ml/min/1.73 sqM); Albumin 3.8 g/dL (3.5-5.0); Albumin/Globulin Ratio 1.4; Alkaline Phosphatase 86 U/L (38-126); Anion Gap 13 mmol/L; Blood Urea Nitrogen 14 mg/dL (7-17); Calcium 8.5 mg/dL (8.4-10.2); Carbon Dioxide 19 mmol/L (22-30); Chloride 105 mmol/L (98-107); Globulin 2.7 g/dL; Glucose 317 mg/dL (74-99); Non-African American GFR(CKD) 86 (>60 ml/min/1.73 sqM); Sodium 137 mmol/L (137-145); Total Bilirubin 0.9 mg/dL (0.2-1.3); Total Protein 6.5 g/dL (6.3-8.2)
[2020-09-19 22:45] LABS: Potassium 4.1 mmol/L (3.5-5.1)
[2020-09-20] MEDS: HEPARIN SODIUM,PORCINE/PF 5,000 UNIT/0.5 ML SYRINGE SQ SCH ×2 (00:11→08:28)
[2020-09-20] MEDS: methylPREDNISolone SOD SUCCI 125 MG/2 ML VIAL IV SCH ×2 (00:35→08:27)
--- NOTE | 2020-09-20 07:41 | XR ---
EXAMINATION TYPE: XR chest 2V DATE OF EXAM: 09/20/2020 COMPARISON: 09/19/2020 HISTORY: 75-year-old female shortness of breath, pleural effusion TECHNIQUE: Frontal and lateral views FINDINGS: Heart borderline in size. Interstitial prominence. Small left effusion with adjacent left basilar opa city. IMPRESSION: Stable exam with small left pleural effusion with adjacent atelectasis and/or consolidation.
[2020-09-20 07:59] VITALS: BP 135/82; PULSE 87; TEMP 98
[2020-09-20] MEDS: CEVIMELINE 30 MG CAP PO SCH (08:27)
[2020-09-20] MEDS: PREGABALIN 75 MG CAP PO SCH (08:27)
[2020-09-20] MEDS: PANTOPRAZOLE 40 MG TABLET PO SCH (08:27)
[2020-09-20] MEDS: ASPIRIN 325 MG TAB PO SCH (08:27)
[2020-09-20] MEDS: amLODIPine 5 MG TAB PO SCH (08:27)
[2020-09-20] MEDS: ATORVASTATIN 40 MG TAB PO SCH (08:27)
[2020-09-20] MEDS ORDERED: FINASTERIDE 5 MG TAB PO SCH (09:00)
[2020-09-20 09:19] LABS: HCT 46.4 % (34.0-46.0); HGB 15.6 gm/dL (11.4-16.0); MCH 32.6 pg (25.0-35.0); MCHC 33.7 g/dL (31.0-37.0); MCV 96.9 fL (80.0-100.0); Mean Platelet Volume 9.6; Platelet Count 141 k/uL (150-450); RBC 4.79 m/uL (3.80-5.40); RDW 13.7 % (11.5-15.5); WBC 9.7 k/uL (3.8-10.6)
[2020-09-20] MEDS ORDERED: DILTIAZEM CD 180 MG CAP.ER.24H PO SCH (12:30)
--- NOTE | 2020-09-20 12:36 | P.PN ---
Subjective HISTORY OF PRESENTING ILLNESS This is a pleasant 75-year-old with past medical history significant for rheumatoid arthritis, remote pulmonary embolism, hypertension. She is originally from [place] has been up in this area on her boat for the past 2 weeks. She states she had been going about her today and had been feeling fine and then started developing a left chest sharp pain which radiated up in her shoulder. She denies any associated nausea, diaphoresis, shortness breath. She denies any fevers, chills, cough. She does admit the pain is somewhat improved with lifting above her head and is somewhat reproducible with palpation. She normally stays fairly active walking most place that she goes however nothing more exertion secondary to her rheumatoid arthritis. She does get some chronic dyspnea on exertion however this has been fairly stable. 09/20 Patient seen and examined. Patient did go into A. fib with RVR after stress test with heart rates predominantly in the 130s up to 170s. She states she was asymptomatic during this time. She exercises for just under 2 minutes with very poor exercise tolerance however admits she was having some of the discomfort and therefore the somewhat inhibited her however. More musculoskeletal and went away while she was exercising. Stress test showed no inducible ischemia. Echo with normal left ventricular ejection fraction. The A. fib is new diagnosis and discussed importance of anticoagulation as well as possible symptom control, may be a source of her dyspnea on exertion in the past however she was fairly asymptomatic with episode yesterday. She remained in A. fib for approximately 4 hours and then converted back to normal sinus rhythm. PHYSICAL EXAMINATION Vital signs reviewed. CONSTITUTIONAL: No apparent distress. HEENT: Head is normocephalic. Pupils are equal, round. Sclerae anicteric. Mucous membranes of the mouth are moist. No JVD. No carotid bruit. CHEST EXAMINATION: Lungs are clear to auscultation. +reproducible chest pain HEART EXAMINATION: Regular rate and rhythm. S1, S2 heard. No murmurs, gallops or rub. ABDOMEN: Soft, nontender. Positive bowel sounds. EXTREMITIES: 2+ peripheral pulses, no lower extremity edema and no calf tenderness. NEUROLOGIC EXAMINATION: Patient is awake, alert and oriented x3. ASSESSMENT 1. Atypical reproducible chest pain, troponin normal times. 2. Chronic dyspnea on exertion, may be related to deconditioning 3. Rheumatoid arthritis 4. History of pulmonary embolism 5. Abnormal EKG with Q waves inferiorly 6. Hyperlipidemia 7. New onset Afib PLAN Chest pain is atypical and reproducible with poor exercise tolerance however no inducible ischemia by stress echo and echo with normal left ventricular ejection fraction and no significant valvar disease. Patient did have incidental episode of new onset atrial fibrillation for a few hours which she was asymptomatic from. She did have mild RVR with heart rates up to 160s and 170s and was placed on a Cardizem drip at 5. Currently normal sinus rhythm. We will stop her Norvasc and change her to oral Cardizem. Also given her elevated CHADSVASC we will prescribe Eliquis 5 mg twice a day. Patient stable for discharge home with outpatient follow-up with bank compliance officer in 1-2 weeks. Objective - Vital Signs Vital signs: Vital Signs Temp 98.0 F 09/20/20 07:00 Pulse 87 09/20/20 07:00 Resp 20 09/20/20 07:00 BP 135/82 09/20/20 07:00 Pulse Ox 92 L 09/20/20 07:00 Intake & Output 09/19/20 09/20/20 09/20/20 18:59 06:59 18:59 Intake Total 180 76.64 240 Balance 180 76.64 240 Weight 80 kg Intake: Intake, IV Titration 76.64 Amount Heparin Sod,Pork in 0.45% 76.64 NaCl 25,000 unit In 0.45 % NaCl 1 250ml.bag @ 12 UNITS/KG/HR 9.6 mls/hr IV .Q24H MIKO Rx#:[id number] Oral 180 240 Other: Voiding Method Toilet Toilet Toilet # Voids 1 3 - Labs CBC & Chem 7: 09/20/20 08:56 09/19/20 21:05 Labs: Abnormal Lab Results - Last 24 Hours (Table) 09/19/20 09/19/20 09/19/20 Range/Units 21:05 21:05 21:05 Hct 48.0 H (34.0-46.0) % Plt Count 125 L (150-450) k/uL Neutrophils # 7.9 H (1.3-7.7) k/uL Lymphocytes # 0.6 L (1.0-4.8) k/uL APTT 92.6 H (22.0-30.0) sec Carbon Dioxide 19 L (22-30) mmol/L Glucose 317 H (74-99) mg/dL 09/20/20 09/20/20 09/20/20 Range/Units 02:28 08:56 08:56 Hct 46.4 H (34.0-46.0) % Plt Count 141 L (150-450) k/uL Neutrophils # (1.3-7.7) k/uL Lymphocytes # (1.0-4.8) k/uL APTT 37.3 H 49.1 H (22.0-30.0) sec Carbon Dioxide (22-30) mmol/L Glucose (74-99) mg/dL
[2020-09-20] MEDS ORDERED: APIXABAN 5 MG TAB PO SCH (12:45)
[2020-09-20 13:00] LABS: African American GFR (CKD) 84.2 (60.0-200.0); Anion Gap 12.3 mmol/L (4.00-12.00); BUN/Creat Ratio 17.5 Ratio (12.00-20.00); Carbon Dioxide 22.7 mmol/L (21.6-31.8); Non-African American GFR(CKD) 72.6 (60.0-200.0); Potassium 4.4 mmol/L (3.5-5.5)
--- NOTE | 2020-09-20 13:40 | P.DS ---
Providers Date of admission: 09/20/20 07:13 Expected date of discharge: 09/20/20 Attending physician: Leonel Bain Consults: 09/18/20 17:38 Consult Physician Urgent Consulting Provider: Vimal Barnes Consult Reason/Comments: chest pain Do you want consulting provider notified?: Yes 09/20/20 11:52 Consult Physician Urgent Consulting Provider: Vimal Barnes Consult Reason/Comments: afib with RVR Do you want consulting provider notified?: Yes Primary care physician: Stated None Hospital Course: Discharge Diagnosis: Atypical pleuritic chest pain New-onset A. fib with RVR Thrombocytopenia Hypertension Dyslipidemia Hospital Course: The patient is a 75-year-old female with a PMH of Rheumatoid arthritis on biologic, pulmonary embolism diagnosed 2 years ago, history of multiple pneumonias who presented to the emergency room with complaints of left-sided chest pain. Upon presentation, the patient's vital signs revealed tachycardia with pulse 118, and hypoxia with SpO2 93% on room air, and BP 139/98. Chest CTA was negative for PE but did reveal a small left-sided pleural effusion with adjacent atelectasis. Chest x-ray was consistent with mild CHF. Laboratory evaluation revealed a hemoglobin of 16.2, platelets 132, d-dimer 0.61, proBNP 174, and troponin less than 0.012. Influenza, RSV, and coronavirus PCR were all negative. EKG revealed sinus tachycardia at 112 bpm along with Q waves and T- wave flattening in leads 3 and aVF. She was admitted for further evaluation. Her troponins remained negative. She was seen by cardiology and underwent an echocardiogram which revealed an ejection fraction of 55%. Stress echo was negative for reversible ischemia. She continued to have left-sided pain with movement and palpation so she was started on IV Solu-Medrol. The following day patient reported that her chest pain completely resolved. However overnight patient went into A. fib with RVR. She started heparin drip and Cardizem drip. She converted to normal sinus rhythm. Cardiology switched her to oral Cardizem and Eliquis. Patient deemed stable for discharge by cardiology. She is instructed to follow- up with her synthetic resin operator. Patient seen and examined at bedside.[] Vital signs reviewed and stable. General: [non toxic], [no distress], [appears at stated age] Derm: [warm], [dry] Head: [atraumatic], [normocephalic], [symmetric] Eyes: [EOMI], [no lid lag], [anicteric sclera] Mouth: [no lip lesion], [mucus membranes moist] Cardiovascular: [S1S2 reg], [no murmur], [positive posterior tibial pulse bilateral], Lungs: [CTA bilateral], [no rhonchi, no rales] , [no accessory muscle use] Abdominal: [soft], [ nontender to palpation], [no guarding], [no appreciable organomegaly] Ext: [no gross muscle atrophy], [no edema], [no contractures] Neuro: [ CN II-XI grossly intact], [no focal neuro deficits] Psych: [Alert], [oriented], [appropriate affect] A total of [32] minutes of time were spent preparing this complex discharge summary . Patient Condition at Discharge: Fair Plan - Discharge Summary Discharge Rx Participant: Yes New Discharge Prescriptions: New Diltiazem Cd [Cardizem CD] 180 mg PO DAILY #30 cap.er.24h methylPREDNISolone Dose Pack [Medrol Dose Pack] 4 mg PO DIRECTED #21 package Apixaban [Eliquis] 5 mg PO BID #60 tab Continue Salsalate [Disalcid] 750 mg PO BID Cholecalciferol [Vitamin D3 (25 Mcg = 1000 Iu)] 100 mcg PO DAILY Zinc Gluconate [Zinc] 50 mg PO DAILY Pantoprazole [Protonix] 40 mg PO DAILY Multivitamins, Thera [Multivitamin (formulary)] 1 tab PO DAILY Finasteride [Proscar] 5 mg PO DAILY Diclofenac Sodium Gel [Voltaren Gel] 2 gm TOPICAL QID PRN PRN Reason: Pain Aspirin EC [Ecotrin Low Dose] 81 mg PO DAILY Pregabalin [Lyrica] 75 mg PO BID [place]-3 Fatty Acids/Fish Oil [Fish Oil 1,000 mg Softgel] 1 cap PO BID Alendronate Sodium [Fosamax] 70 mg PO TU Etanercept [Enbrel Sureclick] 50 mg SQ TU Docusate [Colace] 100 mg PO BID Cevimeline [Evoxac] 30 mg PO BID Biotin 10,000 mcg PO DAILY Atorvastatin [Lipitor] 40 mg PO DAILY Ascorbic Acid [Vitamin C] 500 mg PO DAILY Discontinued amLODIPine [Norvasc] 5 mg PO DAILY Discharge Medication List Alendronate Sodium [Fosamax] 70 mg PO TU 09/18/20 [History] Ascorbic Acid [Vitamin C] 500 mg PO DAILY 09/18/20 [History] Aspirin EC [Ecotrin Low Dose] 81 mg PO DAILY 09/18/20 [History] Atorvastatin [Lipitor] 40 mg PO DAILY 09/18/20 [History] Biotin 10,000 mcg PO DAILY 09/18/20 [History] Cevimeline [Evoxac] 30 mg PO BID 09/18/20 [History] Cholecalciferol [Vitamin D3 (25 Mcg = 1000 Iu)] 100 mcg PO DAILY 09/18/20 [History] Diclofenac Sodium Gel [Voltaren Gel] 2 gm TOPICAL QID PRN 09/18/20 [History] Docusate [Colace] 100 mg PO BID 09/18/20 [History] Etanercept [Enbrel Sureclick] 50 mg SQ TU 09/18/20 [History] Finasteride [Proscar] 5 mg PO DAILY 09/18/20 [History] Multivitamins, Thera [Multivitamin (formulary)] 1 tab PO DAILY 09/18/20 [History] [place]-3 Fatty Acids/Fish Oil [Fish Oil 1,000 mg Softgel] 1 cap PO BID 09/18/20 [History] Pantoprazole [Protonix] 40 mg PO DAILY 09/18/20 [History] Pregabalin [Lyrica] 75 mg PO BID 09/18/20 [History] Salsalate [Disalcid] 750 mg PO BID 09/18/20 [History] Zinc Gluconate [Zinc] 50 mg PO DAILY 09/18/20 [History] Apixaban [Eliquis] 5 mg PO BID #60 tab 09/20/20 [Rx] Diltiazem Cd [Cardizem CD] 180 mg PO DAILY #30 cap.er.24h 09/20/20 [Rx] methylPREDNISolone Dose Pack [Medrol Dose Pack] 4 mg PO DIRECTED #21 package 09/20/20 [Rx] Follow up Appointment(s)/Referral(s): Vimal Barnes DO [STAFF PHYSICIAN] - 1 Week None,Stated [Primary Care Provider] - 1-2 days Patient Instructions/Handouts: A-fib (Atrial Fibrillation) (GEN) Discharge Disposition: HOME SELF-CARE
--- NOTE | 2020-09-22 12:14 | CDI ---
Documentation Clarification Form Date: 09/22/20 From: Jeannie Theodore Admit Date: 09/20/2020 07:13:00 AM Patient Name: Lynette Hobbs Visit Number: [id number] Discharge Date: 09/20/2020 02:40:00 PM ATTENTION: The Clinical Documentation Specialists (CDI) and [facility] Coding Staff appreciate your assistance in clarifying documentation. Please respond to the clarification below the line at the bottom and electronically sign. The CDI & [facility] Coding staff will review the response and follow-up if needed. Please note: Queries are made part of the Legal Health Record. If you have any questions, please contact the author of this message via ITS. Dr. Vimal Barnes, Atrial Fibrillation is documented your 09/20 PN. Additional clarification regarding the type of atrial fibrillation is requested. History/Risk Factors: HTN, RA, HLD, Clinical Indicators: She went into a.fib with RVR after stress test with heart rates predominantly in the 30s up to 170s. She remained in A fib for approximately 4 hours and then converted back to normal sinus rhythm. EKG/telemetry: Atrial fibrillation with RVR. Vent rate-143 bpm, QRS-90 ms, QT/QTc-302/466 ms. Treatment: IV Cardizem, discharged home on PO Cardizem Please clarify the type of atrial fibrillation, if known: [ ] Chronic [ ] Permanent [ X ] Paroxysmal [ ] Persistent [ ] Other, please specify [ ] Unable to determine MTDD
--- NOTE | 2020-09-22 12:26 | CDI ---
Documentation Clarification Form Date: 09/22/2020 12:24:00 PM From: Jeannie Theodore Admit Date: 09/20/2020 07:13:00 AM Patient Name: Lynette Hobbs Visit Number: [id number] Discharge Date: 09/20/2020 02:40:00 PM ATTENTION: The Clinical Documentation Specialists (CDI) and [facility] Coding Staff appreciate your assistance in clarifying documentation. Please respond to the clarification below the line at the bottom and electronically sign. The CDI & [facility] Coding staff will review the response and follow-up if needed. Please note: Queries are made part of the Legal Health Record. If you have any questions, please contact the author of this message via ITS. Dr. Taylor Thibodeaux, Your patient has the documented diagnosis of unspecified CHF in the H&P, 09/19 PN & DS. Additional information regarding the [type, acuity] of CHF is requested. History/Risk Factors: HTN, RA, HLD, A fibrillation Clinical Indicators: Presents with atypical chest pain. Dyspnea on exertion. CXR revealed mild CHF. VS/Pulse OX: T-98.6, P-118, R-18, BP-138/98, O2 sat-93 BNP: 174 09/19 Echocardiogram Results: Overall left ventricular systolic function is normal with, an EF between 55 - 60 %. 09/18 Chest X Ray: Mild CHF. Treatment: IV Lasix 40 mg then IV Lasix 60 mg Q8HR In your professional opinion, can you please clarify the [acuity and type] of CHF if known? [ ] Acute Systolic Heart Failure (reduced EF) [ ] Chronic Systolic Heart Failure (reduced EF) [ ] Acute on Chronic Systolic Heart Failure (reduced EF) [ ] Acute Diastolic Heart Failure (preserved EF) [ ] Chronic Diastolic Heart Failure (preserved EF) [X ] Acute on Chronic Diastolic Heart Failure (preserved EF) [ ] Acute Systolic & Diastolic Heart Failure [ ] Chronic Systolic & Diastolic Heart Failure [ ] Acute on Chronic Heart Failure Systolic & Diastolic Heart Failure [ ] Other, please specify [ ] Unable to determine MTDD
== END 2020-09-20 14:40 | disposition home or self-care (01) | DRG 308 ==
LOC: EC 14:44 → 6NMEDSUR 17:38 → OBSVTOIN 09-20 07:13
PROVIDERS: ADMIT Internal Medicine; ATTEND Internal Medicine
DX: I48.0 Paroxysmal atrial fibrillation (principal); J96.01 Acute respiratory failure with hypoxia; I50.33 Acute on chronic diastolic (congestive) heart failure; J98.11 Atelectasis; D69.6 Thrombocytopenia, unspecified; M06.9 Rheumatoid arthritis, unspecified; Z20.822 Contact with and (suspected) exposure to COVID-19; E78.5 Hyperlipidemia, unspecified; E66.3 Overweight; Z68.27 Body mass index [BMI] 27.0-27.9, adult; Z79.83 Long term (current) use of bisphosphonates; Z79.82 Long term (current) use of aspirin; Z79.899 Other long term (current) drug therapy; Z87.2 Personal history of diseases of the skin and subcutaneous tissue; Z86.711 Personal history of pulmonary embolism; Z87.01 Personal history of pneumonia (recurrent); Z87.891 Personal history of nicotine dependence; Z87.39 Personal history of other diseases of the musculoskeletal system and connective tissue; Z98.890 Other specified postprocedural states; Z88.1 Allergy status to other antibiotic agents; Z88.8 Allergy status to other drugs, medicaments and biological substances; Z91.048 Other nonmedicinal substance allergy status; Z83.3 Family history of diabetes mellitus
CPT/HCPCS: 36415; 71045; 71046; 71275; 76705; 80048; 80053; 80061; 83735; 83880; 84484; 85025; 85027; 85379; 85610; 85730; 87636; 93005; 93306; 93351; 99285